=== PATIENT | female | born 1975 | race Two or more races ===

== ENCOUNTER 2017-11-19 01:54 | Emergency (ER) | payer BC, OTHER ==
[~2017-11-19] VITALS: Ht 177.8 cm; Wt 59.0 kg
[~2017-11-19 01:54] MED LIST: IBUP-51 PO
[2017-11-19 01:59] VITALS: BP 98/66
[2017-11-19] MEDS ORDERED: LIDOCAINE 1% INJ 50 ML MDV IJ ONE (03:28)
[2017-11-19] MEDS ORDERED: TDAP [DIPH/PERTUSSIS/TET] 0.5 ML VIAL IM ONE ×2 (03:30→03:32)
[2017-11-19] MEDS ORDERED: LIDOCAINE HCL/PF 1% 30 ML VIAL TP ONE (03:30)
[2017-11-19] MEDS ORDERED: KETOROLAC TROMETHAMINE INJ 60 MG/2 ML VIAL IM ONE (03:30)
[2017-11-19] MEDS ORDERED: KETOROLAC TROMETHAMINE INJ 30 MG/ML VIAL ONE (03:32)
== END 2017-11-19 04:04 | disposition home or self-care (01) ==
LOC: ER 01:54
DX: S61.211A Laceration without foreign body of left index finger without damage to nail, initial encounter (principal); W26.0XXA Contact with knife, initial encounter; Y93.89 Activity, other specified; Y92.89 Other specified places as the place of occurrence of the external cause; Y99.8 Other external cause status
CPT/HCPCS: 90715; A4606; A6403; J1885; J3490; Z7610

== ENCOUNTER 2017-11-20 13:23 | Emergency (ER) | payer BC, OTHER ==
[~2017-11-20] VITALS: Ht 177.8 cm; Wt 59.0 kg
[2017-11-20 13:23] VITALS: BP 127/83
== END 2017-11-20 14:22 | disposition home or self-care (01) ==
LOC: ER 13:24
DX: S61.211D Laceration without foreign body of left index finger without damage to nail, subsequent encounter (principal); X58.XXXD Exposure to other specified factors, subsequent encounter
CPT/HCPCS: A4606; Z7502; Z7610

== ENCOUNTER 2017-11-28 15:26 | Emergency (ER) | payer BC, OTHER ==
[~2017-11-28] VITALS: Ht 177.8 cm; Wt 59.0 kg
[2017-11-28 15:31] VITALS: BP 146/84
== END 2017-11-28 16:16 | disposition home or self-care (01) ==
LOC: ER 15:31
DX: S61.211D Laceration without foreign body of left index finger without damage to nail, subsequent encounter (principal)
CPT/HCPCS: A4606; Z7502; Z7610